=== PATIENT | male | born 1985 | race African-American/Black ===

== ENCOUNTER 2024-04-04 02:15 | Observation (INO) ==
--- NOTE | 2024-04-04 02:50 | EKG ---
Test Reason : CHEST AND BACK PAIN Blood Pressure : */* mmHG Vent. Rate : 82 BPM Atrial Rate : 82 BPM P-R Int : 160 ms QRS Dur : 78 ms QT Int : 354 ms P-R-T Axes : 75 74 51 degrees QTc Int : 413 ms Normal sinus rhythm Minimal voltage criteria for LVH, may be normal variant ( Sokolow-Dimas ) Borderline ECG No previous ECGs available Confirmed by Denny Cunningham ([id number]) on 04/05/2024 12:40:18 PM Referred By: Confirmed By: Denny Cunningham
--- NOTE | 2024-04-04 02:56 | DR.MBACK ---
HPI Time Seen Time Seen by Provider: 04/04/24 02:54 PCP Primary Care Physician: LUZMARIA Complaint Chief Complaint:: PT AMBULATORY IN ED WITH C/O RIGHT CHEST AND RIGHT BACK PAIN. PT STATES IT HURTS MORE ON MOVEMENT. STATES SHE JUST LEFT [facility] LESS THAN 12 HRS AGO. STATES THEY TOLD HIM HE MIGHT HAVE PNEUMONIA AND PUT HIM ON ANTIBIOTICS AND STEROIDS. COVID-19 Coronavirus risk:travel/contact w/high risk person: No Has patient experienced Coronavirus symptoms: No Source History Provided: Patient Mode of Arrival Mode of Arrival: Ambulatory Timing Onset of Chief Complaint: 04/03/24 PMH PMH Past Medical History: Yes Past Medical History: Coronary Artery Disease, Dyslipidemia, Hypertension and [place] Past Surgical History: No Surgical History: No History Family History History of Family Medical Conditions: Yes Family Medical History: [place], Coronary Artery Disease, Heart Failure, Sudden Cardiac and Hypertension Social History Does patient currently use any type of tobacco product: Yes Have you used tobacco products in the last 12 months: Yes Type of Tobacco Use: Vape Does any household member use tobacco: No Alcohol Use: None Do you use any recreational Drugs:: Yes (MARIJUANA) Lives With: Family Lives Where: Home Travel Risk Coronavirus risk:travel/contact w/high risk person: No Has patient experienced Coronavirus symptoms: No Infectious screening In the last 2 months have you had wt loss of >10#?: NO Have you had fever, night sweats or hemotysis?: No Have you traveled outside the country in the last 6 months?: No Isolation: Standard PE Vital Signs Vitals: Vital Signs Temperature 98.0 F Pulse Rate 64 Pulse Rate 67 Pulse Rate 62 Pulse Rate 62 Pulse Rate 70 Pulse Rate 73 Pulse Rate 76 Pulse Rate 64 Pulse Rate 70 Pulse Rate 72 Pulse Rate 72 Pulse Rate 75 Pulse Rate 80 Pulse Rate 79 Pulse Rate 78 Pulse Rate 79 Pulse Rate 80 Pulse Rate 82 Pulse Rate 82 Pulse Rate 84 Pulse Rate 81 Respiratory Rate 25 Respiratory Rate 25 Respiratory Rate 25 Respiratory Rate 24 Respiratory Rate 25 Respiratory Rate 24 Respiratory Rate 24 Respiratory Rate 24 Respiratory Rate 28 Respiratory Rate 29 Respiratory Rate 30 Respiratory Rate 29 Respiratory Rate 41 Respiratory Rate 25 Respiratory Rate 27 Respiratory Rate 25 Respiratory Rate 27 Respiratory Rate 27 Respiratory Rate 28 Respiratory Rate 32 Respiratory Rate 20 Blood Pressure 80/50 Blood Pressure 97/54 Blood Pressure 97/54 Blood Pressure 87/52 Blood Pressure 91/55 Blood Pressure 90/52 Blood Pressure 92/51 Blood Pressure 91/55 Blood Pressure 112/58 Blood Pressure 110/59 Blood Pressure 112/61 Blood Pressure 120/66 Blood Pressure 117/69 O2 Sat by Pulse Oximetry 94 O2 Sat by Pulse Oximetry 95 O2 Sat by Pulse Oximetry 95 O2 Sat by Pulse Oximetry 96 O2 Sat by Pulse Oximetry 94 O2 Sat by Pulse Oximetry 97 O2 Sat by Pulse Oximetry 96 ROR Labs Reviewed 04/04/24 02:55 04/04/24 02:55 Laboratory: WBC 11.1 X10^3/uL (3.6-10.0) H 04/04/24 02:55 RBC 4.38 X10^6/uL (4.7-6.0) L 04/04/24 02:55 Hgb 13.5 g/dL (13.5-18.0) 04/04/24 02:55 Hct 40.2 % (42.0-54.0) L 04/04/24 02:55 MCV 91.6 fL (80.0-100.0) 04/04/24 02:55 MCH 30.7 pg (27.0-34.0) 04/04/24 02:55 MCHC 33.5 g/dL (33.0-35.0) 04/04/24 02:55 RDW 14.3 % (11.6-16.5) 04/04/24 02:55 Plt Count 275 X10^3/uL (150.0-450.0) 04/04/24 02:55 MPV 8.7 fL (7.4-11.0) 04/04/24 02:55 Neut % (Auto) 73.6 % (42.0-75.0) 04/04/24 02:55 Lymph % (Auto) 15.3 % (21.0-51.0) L 04/04/24 02:55 [place] % (Auto) 5.8 % (0.0-13.0) 04/04/24 02:55 Eos % (Auto) 0.8 % (0.9-2.9) L 04/04/24 02:55 Baso % (Auto) 4.5 % (0.2-1.0) H 04/04/24 02:55 Neut # (Auto) 8.2 x10^3/uL (2.2-4.8) H 04/04/24 02:55 Lymph # (Auto) 1.7 X10^3/uL (1.3-2.9) 04/04/24 02:55 [place] # (Auto) 0.6 x10^3/uL (0.3-0.8) 04/04/24 02:55 Eos # (Auto) 0.1 x10^3/uL (0.0-0.2) 04/04/24 02:55 Baso # (Auto) 0.5 X10^3/uL (0.0-0.1) H 04/04/24 02:55 Absolute Nucleated RBC 0.0 /100WBC 04/04/24 02:55 D-Dimer 0.29 ug/ml (0.0-0.57) 04/04/24 02:55 Sodium 138 mmol/L (136-145) 04/04/24 02:55 Corrected Sodium TNP 04/04/24 02:55 Potassium 3.5 mmol/L (3.5-5.1) 04/04/24 02:55 Chloride 104 mmol/L (98-107) 04/04/24 02:55 Carbon Dioxide 31.0 mmol/L (21-32) 04/04/24 02:55 BUN 11 mg/dL (7-18) 04/04/24 02:55 Creatinine 1.16 mg/dL (0.70-1.30) 04/04/24 02:55 Est GFR (MDRD) Af Amer > 60 (>60) 04/04/24 02:55 Est GFR (MDRD) Non-Af > 60 (>60) 04/04/24 02:55 Glucose 106 mg/dL (65-99) H 04/04/24 02:55 Lactic Acid 0.7 mmol/L (0.4-2.0) 04/04/24 07:10 Calcium 8.4 mg/dL (8.5-10.1) L 04/04/24 02:55 Corrected Calcium 9.0 mg/dL (8.5-10.1) 04/04/24 02:55 Total Bilirubin 0.20 mg/dL (0.2-1.0) 04/04/24 02:55 AST 19 Units/L (15-37) 04/04/24 02:55 ALT 28 Units/L (12-78) 04/04/24 02:55 Alkaline Phosphatase 102 Units/L (46-116) 04/04/24 02:55 Creatine Kinase 228 Units/L (39-308) 04/04/24 02:55 Troponin I High Sens 4.3 ng/L (4.0-60.0) 04/04/24 05:05 Total Protein 6.7 g/dL (6.4-8.2) 04/04/24 02:55 Albumin 3.2 g/dL (3.4-5.0) L 04/04/24 02:55 Globulin 3.5 g/dL (2.5-4.5) 04/04/24 02:55 Albumin/Globulin Ratio 0.9 Ratio (1.1-2.1) L 04/04/24 02:55 Opioid Opioid Risk Tool Age (Laci box if 16-45): Yes History of Preadolescent Sexual Abuse: No Total: 1 Total Score Risk Category: Low Risk Copyright: Neymar ANDERSON predicting aberrant behaviors Discharge Plan Diagnosis Discharge Problem: Chest pain, Pneumonia, Hypotension Discharge Plan Patient Disposition: 09 ADMITTED INPATIENT Condition: Stable Orders to Discharge Patient Discharge Orders: Transfer (Routine); Ordered 04/04/24 Ordered By: CAROLYN WHITE
[2024-04-04 03:09] LABS: BASOPHILS # (AUTO) 0.5 X10^3/uL (0.0-0.1); BASOPHILS % (AUTO) 4.5 % (0.2-1.0); EOSINOPHILS # (AUTO) 0.1 x10^3/uL (0.0-0.2); EOSINOPHILS % (AUTO) 0.8 % (0.9-2.9); HEMATOCRIT 40.2 % (42.0-54.0); HEMOGLOBIN 13.5 g/dL (13.5-18.0); LYMPHOCYTES # (AUTO) 1.7 X10^3/uL (1.3-2.9); LYMPHOCYTES % (AUTO) 15.3 % (21.0-51.0); MEAN CORPUSCULAR HEMOGLOBIN 30.7 pg (27.0-34.0); MEAN CORPUSCULAR HGB CONC 33.5 g/dL (33.0-35.0); MEAN CORPUSCULAR VOLUME 91.6 fL (80.0-100.0); MEAN PLATELET VOLUME 8.7 fL (7.4-11.0); MONOCYTES # (AUTO) 0.6 x10^3/uL (0.3-0.8); MONOCYTES % (AUTO) 5.8 % (0.0-13.0); NEUTROPHILS # (AUTO) 8.2 x10^3/uL (2.2-4.8); NEUTROPHILS % (AUTO) 73.6 % (42.0-75.0); PLATELET COUNT 275 X10^3/uL (150.0-450.0); RED BLOOD COUNT 4.38 X10^6/uL (4.7-6.0); RED CELL DISTRIBUTION WIDTH 14.3 % (11.6-16.5); WHITE BLOOD COUNT 11.1 X10^3/uL (3.6-10.0)
[2024-04-04 03:22] LABS: ALANINE AMINOTRANSFERASE 28 Units/L (12-78); ALBUMIN 3.2 g/dL (3.4-5.0); ALKALINE PHOSPHATASE 102 Units/L (46-116); ASPARTATE AMINO TRANSFERASE 19 Units/L (15-37); BLOOD UREA NITROGEN 11 mg/dL (7-18); CALCIUM 8.4 mg/dL (8.5-10.1); CHLORIDE 104 mmol/L (98-107); CREATINE KINASE 228 Units/L (39-308); CREATININE 1.16 mg/dL (0.70-1.30); GLUCOSE 106 mg/dL (65-99); POTASSIUM 3.5 mmol/L (3.5-5.1); SODIUM 138 mmol/L (136-145); TOTAL PROTEIN 6.7 g/dL (6.4-8.2); eGFR NON BLACK RACES > 60 (>60)
--- NOTE | 2024-04-04 04:59 | CT ---
EXAM: CT CHEST WITHOUT CONTRAST HISTORY: PT AMBULATORY IN ED WITH C/O RIGHT CHEST AND RIGHT BACK PAIN. PT STATES IT HURTS MORE ON MOVEMENT. ; CAD, HTN, [place] COMPARISON: None. TECHNIQUE: Axial images were acquired of the chest without IV contrast. Sagittal and coronal reformatted images were provided. All images were reviewed in a variety of windows and levels. 3D MIPS were performed a nd reviewed. RADIATION REDUCTION TECHNIQUE: Automated exposure control, Adjustment of the mA and/or kV according t o patient size, or iterative reconstruction techniques were used. FINDINGS: Please note that lack of IV contrast limits evaluation of soft tissue structures and vascular detail THYROID GLAND: The thyroid gland is grossly unremarkable. HEART AND VESSELS: The heart size is within normal limits. There is no evidence of a pericardial effu pantera. The thoracic aorta is normal is size without evidence of an aneurysm. The main pulmonary artery size is within normal limits. LYMPHNODES: There is no evidence of axillary, mediastinal, or hilar lymphadenopathy. AIRWAY: The trachea and mainstem bronchi are patent. There are no intraluminal lesions seen. LUNGS: Bibasilar subsegmental atelectasis and/or infiltrates. No pleural effusion or pneumothorax. ESOPHAGUS: The esophagus is grossly unremarkable. BONES: The visualized bones are intact. There are no concerning lytic or blastic lesions identified. UPPER ABDOMINAL STRUCTURES: The visualized portions of the upper abdominal structures are unremarkabl e. IMPRESSION: Mild bibasilar subsegmental atelectasis and/or infiltrates. THIS IS AN ELECTRONICALLY VERIFIED FINAL REPORT 04/04/2024 4:48 AM - Electronically signed by Deo Katz MD
--- NOTE | 2024-04-04 05:11 | RAD ---
EXAM: CHEST, 1 VIEW HISTORY: PT AMBULATORY IN ED WITH C/O RIGHT CHEST AND RIGHT BACK PAIN. PT STATES IT HURTS MORE ON MOVEMENT.; C AD, HTN, [place] COMPARISON: None FINDINGS: The cardiomediastinal silhouette is normal in size. No acute airspace disease. No pneumothorax or effusion. No acute osseous abnormality. IMPRESSION: No acute cardiopulmonary disease. THIS IS AN ELECTRONICALLY VERIFIED FINAL REPORT 04/04/2024 5:07 AM - Electronically signed by Royal Mccollum MD
[2024-04-04] MEDS: NS 1,000 ML IV 1,000 ML IV ONE (06:30)
[2024-04-04] MEDS: NS 1/2 1,000 ML IV 1,000 ML IV SCH ×2 (07:20→10:29)
[2024-04-04] MEDS: FORTAZ or TAZICEF VIAL INJ IV SCH (07:21)
[2024-04-04] MEDS: LEVAQUIN PREMIX IV 750 MG 750 MG/150 ML BAG IV SCH (07:21)
[2024-04-04 08:20] VITALS: BMI 25.2
[2024-04-04] MEDS: NS 1,000 ML IV 1,000 ML ONE (08:30)
[2024-04-04] MEDS: NS 1/2 1,000 ML IV 1,000 ML IV ONE (08:30)
[2024-04-04] MEDS ORDERED: PULMICORT NEB TX 0.5 MG NEB SCH (09:00)
[2024-04-04] MEDS: PULMICORT NEB TX 0.5 MG NEB SCH (09:17)
[2024-04-04] MEDS: DUONEB 0.5 MG/3 MG (3 mL) NEB SCH (13:10)
[2024-04-04] MEDS ORDERED: DUONEB 0.5 MG/3 MG (3 mL) NEB SCH (14:00)
[2024-04-04] MEDS ORDERED: NS 100 ML IV 100 ML ONE (16:50)
[2024-04-04] MEDS: FORTAZ or TAZICEF VIAL INJ 1 G in NS 100 ML IV 100 ML IV SCH (16:56)
--- NOTE | 2024-04-04 17:27 | DR.H&P ---
H&P History & Physical for Day of: H&P Date: 04/04/24 Chief Complaint Chief Complaint: Right anterior chest and right posterior back pain. History of Present Illness History of Present Illness: This is a pleasant 39-year-old black male who presented to [facility] emergency department earlier this morning. He states that he had been in [facility] 12 hours earlier. He states that they told him he has pneumonia and put him on oral antibiotics and steroids and discharged him home. A chest x-ray was done here in the emergency department that was clear however, the ER physician also ordered a CT scan w ithout contrast of his lungs because of the anterior and posterior right-sided chest pain he was having. The CT scan does show that he has mild bibasilar subsegmental atelectasis and/or infiltrates. His white blood cell count is also elevated at 11,100. The patient was discharged home on prednisone 20 mg twice daily and doxycycline 100 mg p.o. twice daily. The patient appears very uncomfortable and lethargic at this time. His symptoms have been going on for several days now and have gotten worse and not better over time. He does have a past medical history significant for primary hypertension and myocardial infarction. The patient was also noted to be hypotensive in the emergency depa rtment but his blood pressure did start improving after IV fluid hydration. Past Medical History Past Medical History: Coronary Artery Disease, Dyslipidemia, Hypertension and [place] Past Surgical History Surgical History: No History Family History Family Medical History: [place] and Hypertension Social History Does patient currently use any type of tobacco product: No Have you used tobacco products in the last 12 months: Yes Type of Tobacco Use: Vape Does any household member use tobacco: No Alcohol Use: None Drug Use: Marijuana Medications Home Medications: Home Medications Medication Instructions Recorded Confirmed Type albuterol sulfate 90 mcg/actuation 2 inh inhalation Q4H PRN 04/04/24 04/04/24 History aerosol inhaler amlodipine 5 mg tablet 5 mg PO QDAY 04/04/24 04/04/24 History aspirin 81 mg tablet,delayed 81 mg PO QDAY 04/04/24 04/04/24 History release atorvastatin 40 mg tablet 40 mg PO QDAY 04/04/24 04/04/24 History doxycycline hyclate 100 mg tablet 100 mg PO BID 04/04/24 04/04/24 History prednisone 20 mg tablet 20 mg PO BID 04/04/24 04/04/24 History Allergies Allergies Allergy/AdvReac Type Severity Reaction Status Date / Time No Known Allergies Allergy Verified 04/04/24 02:35 Labs 04/04/24 02:55 04/04/24 02:55 Labs: Laboratory WBC 11.1 X10^3/uL (3.6-10.0) H 04/04/24 02:55 RBC 4.38 X10^6/uL (4.7-6.0) L 04/04/24 02:55 Hgb 13.5 g/dL (13.5-18.0) 04/04/24 02:55 Hct 40.2 % (42.0-54.0) L 04/04/24 02:55 MCV 91.6 fL (80.0-100.0) 04/04/24 02:55 MCH 30.7 pg (27.0-34.0) 04/04/24 02:55 MCHC 33.5 g/dL (33.0-35.0) 04/04/24 02:55 RDW 14.3 % (11.6-16.5) 04/04/24 02:55 Plt Count 275 X10^3/uL (150.0-450.0) 04/04/24 02:55 MPV 8.7 fL (7.4-11.0) 04/04/24 02:55 Neut % (Auto) 73.6 % (42.0-75.0) 04/04/24 02:55 Lymph % (Auto) 15.3 % (21.0-51.0) L 04/04/24 02:55 Reynolds % (Auto) 5.8 % (0.0-13.0) 04/04/24 02:55 Eos % (Auto) 0.8 % (0.9-2.9) L 04/04/24 02:55 Baso % (Auto) 4.5 % (0.2-1.0) H 04/04/24 02:55 Neut # (Auto) 8.2 x10^3/uL (2.2-4.8) H 04/04/24 02:55 Lymph # (Auto) 1.7 X10^3/uL (1.3-2.9) 04/04/24 02:55 Reynolds # (Auto) 0.6 x10^3/uL (0.3-0.8) 04/04/24 02:55 Eos # (Auto) 0.1 x10^3/uL (0.0-0.2) 04/04/24 02:55 Baso # (Auto) 0.5 X10^3/uL (0.0-0.1) H 04/04/24 02:55 Absolute Nucleated RBC 0.0 /100WBC 04/04/24 02:55 D-Dimer 0.29 ug/ml (0.0-0.57) 04/04/24 02:55 Sodium 138 mmol/L (136-145) 04/04/24 02:55 Corrected Sodium TNP 04/04/24 02:55 Potassium 3.5 mmol/L (3.5-5.1) 04/04/24 02:55 Chloride 104 mmol/L (98-107) 04/04/24 02:55 Carbon Dioxide 31.0 mmol/L (21-32) 04/04/24 02:55 BUN 11 mg/dL (7-18) 04/04/24 02:55 Creatinine 1.16 mg/dL (0.70-1.30) 04/04/24 02:55 Est GFR (MDRD) Af Amer > 60 (>60) 04/04/24 02:55 Est GFR (MDRD) Non-Af > 60 (>60) 04/04/24 02:55 Glucose 106 mg/dL (65-99) H 04/04/24 02:55 Lactic Acid 0.7 mmol/L (0.4-2.0) 04/04/24 07:10 Calcium 8.4 mg/dL (8.5-10.1) L 04/04/24 02:55 Corrected Calcium 9.0 mg/dL (8.5-10.1) 04/04/24 02:55 Total Bilirubin 0.20 mg/dL (0.2-1.0) 04/04/24 02:55 AST 19 Units/L (15-37) 04/04/24 02:55 ALT 28 Units/L (12-78) 04/04/24 02:55 Alkaline Phosphatase 102 Units/L (46-116) 04/04/24 02:55 Creatine Kinase 228 Units/L (39-308) 04/04/24 02:55 Troponin I High Sens 4.3 ng/L (4.0-60.0) 04/04/24 05:05 Total Protein 6.7 g/dL (6.4-8.2) 04/04/24 02:55 Albumin 3.2 g/dL (3.4-5.0) L 04/04/24 02:55 Globulin 3.5 g/dL (2.5-4.5) 04/04/24 02:55 Albumin/Globulin Ratio 0.9 Ratio (1.1-2.1) L 04/04/24 02:55 Review of Systems Constitutional: Fever, Chills, Sweats, Weakness and Malaise Eyes: No Symptoms Reported ENT: No Symptoms Reported Respiratory: Cough, Shortness of Breath, Pleuritic Pain and Sputum Cardiovascular: Chest Pain; denies Paroxysmal Noc. Dyspnea Gastrointestinal: denies Nausea, Vomiting, Abdominal Pain, Diarrhea or Constipation Genitourinary: No Symptoms Reported Musculoskeletal: No Symptoms Reported Skin: No Symptoms Reported Neurological: No Symptoms Reported Physical Exam Vital Signs: Vital Signs Pulse Rate 51 Pulse Rate 74 Pulse Rate 57 Pulse Rate 64 Pulse Rate 59 Pulse Rate 58 Pulse Rate 57 Respiratory Rate 22 Respiratory Rate 26 Respiratory Rate 28 Respiratory Rate 23 Respiratory Rate 21 Blood Pressure 95/53 Blood Pressure 113/57 Blood Pressure 122/78 Blood Pressure 102/51 Blood Pressure 103/51 O2 Sat by Pulse Oximetry 96 O2 Sat by Pulse Oximetry 96 O2 Sat by Pulse Oximetry 98 O2 Sat by Pulse Oximetry 98 O2 Sat by Pulse Oximetry 96 O2 Sat by Pulse Oximetry 97 O2 Sat by Pulse Oximetry 99 Oriented: Normal, Time, Person and Place Eyes: Normal Ear: Normal Nose: Normal Throat: Normal Respiratory: Diminished Throughout and Rhonchi Throughout Cardiovascular: Normal; negative Tachycardia, Bradycardia or Irregular : Normal Auscultation: Bowel Sounds: Normal Palpation: Normal Tenderness: Normal Skin: Normal Musculoskeletal: Normal Psychiatric: Normal Mood Description: Apathetic and Withdrawn Affect: Normal Speech Pattern: Clear Assessment/Plan (1) Pneumonia: Qualifiers: Laterality: bilateral Lung location: lower lobe of lung Pneumonia type: due to unspecified organism Qualified Code(s): J18.9 - Pneumonia, unspecified organism Status: Acute Plan: We will initiate pneumonia protocol and make sure that he has sputum cultures, blood cultures x 2, a lactic acid and we will be giving him IV Fortaz and Levaquin for antibiotic coverage. (2) Hypotension: Status: Acute Plan: IV hydration. Hold antihypertensive medication at this time. (3) Chest pain: Qualifiers: Chest pain type: chest pain on breathing Qualified Code(s): R07.1 - Chest pain on breathing Status: Acute Plan: Pain control if needed. I will start him on Tussionex cough me dicine since she states it hurts to have coughing spells and hurts when he takes deep breaths. I told him this is secondary to pleurisy. Review H&P Reviewed: Yes Patient was examined?: Yes
[2024-04-04] MEDS: TUSSIONEX PENNKINETIC SUSP PO PRN (20:39)
[2024-04-04] MEDS: K-DUR TAB 20 MEQ PO ONE (22:03)
[2024-04-05 05:16] LABS: BASOPHILS # (AUTO) 0.1 X10^3/uL (0.0-0.1); BASOPHILS % (AUTO) 0.8 % (0.2-1.0); EOSINOPHILS % (AUTO) 0.5 % (0.9-2.9); HEMATOCRIT 40.6 % (42.0-54.0); HEMOGLOBIN 13.5 g/dL (13.5-18.0); LYMPHOCYTES # (AUTO) 2.9 X10^3/uL (1.3-2.9); LYMPHOCYTES % (AUTO) 30.4 % (21.0-51.0); MEAN CORPUSCULAR HEMOGLOBIN 30.6 pg (27.0-34.0); MEAN CORPUSCULAR HGB CONC 33.3 g/dL (33.0-35.0); MEAN CORPUSCULAR VOLUME 91.7 fL (80.0-100.0); MEAN PLATELET VOLUME 9.1 fL (7.4-11.0); MONOCYTES # (AUTO) 0.9 x10^3/uL (0.3-0.8); MONOCYTES % (AUTO) 8.9 % (0.0-13.0); NEUTROPHILS # (AUTO) 5.7 x10^3/uL (2.2-4.8); NEUTROPHILS % (AUTO) 59.4 % (42.0-75.0); PLATELET COUNT 269 X10^3/uL (150.0-450.0); RED BLOOD COUNT 4.43 X10^6/uL (4.7-6.0); RED CELL DISTRIBUTION WIDTH 14.4 % (11.6-16.5); WHITE BLOOD COUNT 9.6 X10^3/uL (3.6-10.0)
[2024-04-05] MEDS: NS 1/2 1,000 ML IV 1,000 ML IV ONE (05:25)
[2024-04-05 05:35] LABS: ALANINE AMINOTRANSFERASE 26 Units/L (12-78); ALBUMIN 2.9 g/dL (3.4-5.0); ALKALINE PHOSPHATASE 84 Units/L (46-116); ASPARTATE AMINO TRANSFERASE 16 Units/L (15-37); BLOOD UREA NITROGEN 7 mg/dL (7-18); CALCIUM 8.5 mg/dL (8.5-10.1); CARBON DIOXIDE 29.6 mmol/L (21-32); CHLORIDE 105 mmol/L (98-107); COR CA(FOR HYPOALB) 9.4 mg/dL (8.5-10.1); CREATININE 0.96 mg/dL (0.70-1.30); GLUCOSE 93 mg/dL (65-99); MAGNESIUM 1.6 mg/dL (2.0-2.9); POTASSIUM 3.9 mmol/L (3.5-5.1); SODIUM 139 mmol/L (136-145); TOTAL PROTEIN 6.3 g/dL (6.4-8.2); eGFR NON BLACK RACES > 60 (>60)
[2024-04-05] MEDS: MAG-OX TAB PO SCH (09:27)
--- NOTE | 2024-04-05 11:44 | RAD ---
EXAM:CHEST x-ray, 1 VIEWHISTORY:PNA; CAD, HTN, [place] -COMPARISON:X-ray 04/04/2024FINDINGS:The trachea is midline. The cardiac silhouette is unremarkable .Lungs appear clear. No pneumothorax or pleural effusion is seen.No acute bony abnormality is seen.IMPRESSION:No acute cardiopulmonary abnormality is seen.THIS IS AN ELECTRONICALLY VERIFIED FINAL REPORT04/05/2024 11:41 AM - Electronically signed by Robe Nesbitt MD
[2024-04-05] MEDS ORDERED: NS 1/2 1,000 ML IV 1,000 ML IV ONE (12:22)
[2024-04-05] MEDS: CONSULT PHARMACY - POTASSIUM & MAGNESIUM XX SCH ×2 (16:54)
--- NOTE | 2024-04-05 21:31 | PCM.PROG ---
Progress Note Progress Note for Day of Date of Exam: 04/05/24 Subjective Subjective: The patient is alert and awake this morning. There was no acute events since I saw him yesterday morning. He did well overnight and is doing well this morning. He states that he feels better his appetite is good and he appears to responding well to treatment. We will continue what we are doing at this time and recheck him in the morning. I told him he should expect discharge from the hospital over the next day or 2. Past Medical Family Social History Allergies: Allergies No Known Allergies Allergy (Verified 04/04/24 02:35) Review of Systems ROS: No change since H&P Vital Signs and I&O's Vital Signs: Vital Signs Temperature 97.9 F Pulse Rate 65 Pulse Rate 72 Pulse Rate 60 Pulse Rate 66 Pulse Rate 61 Pulse Rate 75 Pulse Rate 59 Respiratory Rate 28 Respiratory Rate 35 Respiratory Rate 28 Respiratory Rate 25 Respiratory Rate 22 Respiratory Rate 25 Respiratory Rate 24 Blood Pressure 114/69 Blood Pressure 114/73 Blood Pressure 123/82 Blood Pressure 120/68 Blood Pressure 111/70 Blood Pressure 123/71 Blood Pressure 104/54 O2 Sat by Pulse Oximetry 99 O2 Sat by Pulse Oximetry 94 O2 Sat by Pulse Oximetry 96 O2 Sat by Pulse Oximetry 97 O2 Sat by Pulse Oximetry 93 O2 Sat by Pulse Oximetry 94 O2 Sat by Pulse Oximetry 97 Intake and Output: Intake & Output 04/03/24 04/04/24 04/05/24 04/06/24 11:59 11:59 11:59 11:59 Intake Total 2401 / 2401 1671 / 1671 Output Total 1900 / 1900 2200 / 2200 Balance 501 / 501 -529 / -529 Physical Exam Oriented: Normal, Time, Person and Place Eyes: Normal Ear: Normal Nose: Normal Throat: Normal Respiratory: Generalized, Diminished and Rhonchi Cardiovascular: Normal; negative Tachycardia, Bradycardia or Irregular : Normal Auscultation: Bowel Sounds: Normal Tenderness: Normal Skin: Normal Musculoskeletal: Normal Psychiatric: Normal Mood Description: Apathetic and Withdrawn Affect: Normal Speech Pattern: Clear and Appropriate Laboratory and Diagnostics 04/05/24 04:15 04/05/24 04:15 Labs: Laboratory WBC 9.6 X10^3/uL (3.6-10.0) 04/05/24 04:15 RBC 4.43 X10^6/uL (4.7-6.0) L 04/05/24 04:15 Hgb 13.5 g/dL (13.5-18.0) 04/05/24 04:15 Hct 40.6 % (42.0-54.0) L 04/05/24 04:15 MCV 91.7 fL (80.0-100.0) 04/05/24 04:15 MCH 30.6 pg (27.0-34.0) 04/05/24 04:15 MCHC 33.3 g/dL (33.0-35.0) 04/05/24 04:15 RDW 14.4 % (11.6-16.5) 04/05/24 04:15 Plt Count 269 X10^3/uL (150.0-450.0) 04/05/24 04:15 MPV 9.1 fL (7.4-11.0) 04/05/24 04:15 Neut % (Auto) 59.4 % (42.0-75.0) 04/05/24 04:15 Lymph % (Auto) 30.4 % (21.0-51.0) 04/05/24 04:15 [place]offey % (Auto) 8.9 % (0.0-13.0) 04/05/24 04:15 Eos % (Auto) 0.5 % (0.9-2.9) L 04/05/24 04:15 Baso % (Auto) 0.8 % (0.2-1.0) 04/05/24 04:15 Neut # (Auto) 5.7 x10^3/uL (2.2-4.8) H 04/05/24 04:15 Lymph # (Auto) 2.9 X10^3/uL (1.3-2.9) 04/05/24 04:15 [place]offey # (Auto) 0.9 x10^3/uL (0.3-0.8) H 04/05/24 04:15 Eos # (Auto) 0.0 x10^3/uL (0.0-0.2) 04/05/24 04:15 Baso # (Auto) 0.1 X10^3/uL (0.0-0.1) 04/05/24 04:15 Absolute Nucleated RBC 0.0 /100WBC 04/05/24 04:15 D-Dimer 0.29 ug/ml (0.0-0.57) 04/04/24 02:55 Sodium 139 mmol/L (136-145) 04/05/24 04:15 Corrected Sodium TNP 04/05/24 04:15 Potassium 3.9 mmol/L (3.5-5.1) 04/05/24 04:15 Chloride 105 mmol/L (98-107) 04/05/24 04:15 Carbon Dioxide 29.6 mmol/L (21-32) 04/05/24 04:15 BUN 7 mg/dL (7-18) 04/05/24 04:15 Creatinine 0.96 mg/dL (0.70-1.30) 04/05/24 04:15 Est GFR (MDRD) Af Amer > 60 (>60) 04/05/24 04:15 Est GFR (MDRD) Non-Af > 60 (>60) 04/05/24 04:15 Glucose 93 mg/dL (65-99) 04/05/24 04:15 Lactic Acid 0.7 mmol/L (0.4-2.0) 04/04/24 07:10 Calcium 8.5 mg/dL (8.5-10.1) 04/05/24 04:15 Corrected Calcium 9.4 mg/dL (8.5-10.1) 04/05/24 04:15 Magnesium 1.6 mg/dL (2.0-2.9) L 04/05/24 04:15 Total Bilirubin 0.30 mg/dL (0.2-1.0) 04/05/24 04:15 AST 16 Units/L (15-37) 04/05/24 04:15 ALT 26 Units/L (12-78) 04/05/24 04:15 Alkaline Phosphatase 84 Units/L (46-116) 04/05/24 04:15 Creatine Kinase 228 Units/L (39-308) 04/04/24 02:55 Troponin I High Sens 4.3 ng/L (4.0-60.0) 04/04/24 05:05 Total Protein 6.3 g/dL (6.4-8.2) L 04/05/24 04:15 Albumin 2.9 g/dL (3.4-5.0) L 04/05/24 04:15 Globulin 3.4 g/dL (2.5-4.5) 04/05/24 04:15 Albumin/Globulin Ratio 0.9 Ratio (1.1-2.1) L 04/05/24 04:15 Radiology Reviewed: Yes Plan (1) Pneumonia: Status: Acute Qualifiers: Laterality: bilateral Lung location: lower lobe of lung Pneumonia type: due to unspecified organism Qualified Code(s): J18.9 - Pneumonia, unspe cified organism Narrative Support Text: The patient's chest x-ray this morning shows that it has cleared. Plan: We will initiate pneumonia protocol and make sure that he has sputum cultures, blood cultures x 2, a lactic acid and we will be giving him IV Fortaz and Levaquin for antibiotic coverage. (2) Hypotension: Status: Resolved Plan: IV hydration. Hold antihypertensive medication at this time. (3) Chest pain: Status: Resolved Qualifiers: Chest pain type: chest pain on breathing Qualified Code(s): R07.1 - Chest pain on breathing Plan: Pain control if needed. I will start him on Tussionex cough med icine since she states it hurts to have coughing spells and hurts when he takes deep breaths. I told him this is secondary to pleurisy. (4) Hypomagnesemia: Status: Acute Plan: We will start magnesium replacement for the patient. We will recheck magnesium level tomorrow morning to make sure it is improving or pos sibly normalize.
[2024-04-06 05:15] LABS: BASOPHILS % (AUTO) 0.3 % (0.2-1.0); EOSINOPHILS # (AUTO) 0.1 x10^3/uL (0.0-0.2); EOSINOPHILS % (AUTO) 0.8 % (0.9-2.9); HEMATOCRIT 41.3 % (42.0-54.0); HEMOGLOBIN 13.7 g/dL (13.5-18.0); LYMPHOCYTES # (AUTO) 2.8 X10^3/uL (1.3-2.9); LYMPHOCYTES % (AUTO) 28.6 % (21.0-51.0); MEAN CORPUSCULAR HEMOGLOBIN 30.6 pg (27.0-34.0); MEAN CORPUSCULAR HGB CONC 33.3 g/dL (33.0-35.0); MEAN CORPUSCULAR VOLUME 91.9 fL (80.0-100.0); MEAN PLATELET VOLUME 9.6 fL (7.4-11.0); MONOCYTES # (AUTO) 0.9 x10^3/uL (0.3-0.8); MONOCYTES % (AUTO) 9.2 % (0.0-13.0); NEUTROPHILS # (AUTO) 5.9 x10^3/uL (2.2-4.8); NEUTROPHILS % (AUTO) 61.1 % (42.0-75.0); PLATELET COUNT 282 X10^3/uL (150.0-450.0); RED CELL DISTRIBUTION WIDTH 14.2 % (11.6-16.5); WHITE BLOOD COUNT 9.7 X10^3/uL (3.6-10.0)
[2024-04-06 05:33] LABS: ALANINE AMINOTRANSFERASE 25 Units/L (12-78); ALBUMIN 2.9 g/dL (3.4-5.0); ALKALINE PHOSPHATASE 85 Units/L (46-116); ASPARTATE AMINO TRANSFERASE 16 Units/L (15-37); BLOOD UREA NITROGEN 10 mg/dL (7-18); CALCIUM 8.4 mg/dL (8.5-10.1); CARBON DIOXIDE 28.2 mmol/L (21-32); CHLORIDE 105 mmol/L (98-107); COR CA(FOR HYPOALB) 9.3 mg/dL (8.5-10.1); CREATININE 0.93 mg/dL (0.70-1.30); GLUCOSE 89 mg/dL (65-99); MAGNESIUM 1.9 mg/dL (2.0-2.9); POTASSIUM 3.9 mmol/L (3.5-5.1); SODIUM 137 mmol/L (136-145); TOTAL PROTEIN 6.4 g/dL (6.4-8.2); eGFR NON BLACK RACES > 60 (>60)
[2024-04-06] MEDS: NS 1/2 1,000 ML IV 1,000 ML IV ONE (06:55)
[2024-04-06] MEDS ORDERED: CONSULT PHARMACY - POTASSIUM & MAGNESIUM XX SCH (07:00)
[2024-04-06] MEDS: MAG-OX TAB PO SCH (08:30)
[2024-04-06 08:46] VITALS: TEMP 98.2
[2024-04-06 09:02] VITALS: PULSE 65
--- NOTE | 2024-04-06 09:39 | PCM.DCPLAN ---
DISCHARGE SUMMARY Admission Date Date of Admission: 04/04/24 Discharge Date Discharge Date: 04/06/24 Admission Diagnoses (1) Pneumonia: Status: Acute (2) Hypotension: Status: Resolved (3) Chest pain: Status: Resolved (4) Hypomagnesemia: Status: Acute Discharge Diagnoses Discharge Diagnosis: 1. Pneumoniaresolved 2. Hypotensionresolved 3. Chest painresolved 4. Hypomagnesemiamuch improved Discharge Medications Discharge Medications: Home Medication List albuterol sulfate 90 mcg/actuation aerosol inhaler 2 inh inhalation Q4H PRN 04/04/24 [History] amlodipine 5 mg tablet 5 mg PO QDAY 04/04/24 [History] aspirin 81 mg tablet,delayed release 81 mg PO QDAY 04/04/24 [History] atorvastatin 40 mg tablet 40 mg PO QDAY 04/04/24 [History] cefpodoxime 200 mg tablet 200 mg PO BID 7 days #14 tabs 04/06/24 [Rx] levofloxacin 750 mg tablet 750 mg PO QDAY 7 days #7 tabs 04/06/24 [Rx] methylprednisolone 4 mg tablets in a dose pack (Medrol (Brent)) See Rx Instructions .Route .COMPLEX #1 ea 04/06/24 [Rx] Prescriptions: cefpodoxime Gibran Triana levofloxacin Gibran Triana methylprednisolone [Medrol ([facility])] [facility] Vital Signs: Vital Signs Temperature 98.2 F Temperature 98.7 F Pulse Rate 65 Pulse Rate 65 Pulse Rate 75 Pulse Rate 61 Pulse Rate 60 Pulse Rate 51 Pulse Rate 54 Pulse Rate 54 Pulse Rate 89 Pulse Rate 54 Pulse Rate 47 Pulse Rate 51 Pulse Rate 50 Pulse Rate 53 Pulse Rate 53 Respiratory Rate 23 Respiratory Rate 26 Respiratory Rate 36 Respiratory Rate 24 Respiratory Rate 17 Respiratory Rate 18 Respiratory Rate 19 Respiratory Rate 20 Respiratory Rate 33 Respiratory Rate 20 Respiratory Rate 20 Respiratory Rate 20 Respiratory Rate 21 Respiratory Rate 21 Blood Pressure 118/62 Blood Pressure 132/78 Blood Pressure 118/67 Blood Pressure 115/73 Blood Pressure 104/61 Blood Pressure 108/70 Blood Pressure 114/68 Blood Pressure 114/68 O2 Sat by Pulse Oximetry 100 O2 Sat by Pulse Oximetry 99 O2 Sat by Pulse Oximetry 100 O2 Sat by Pulse Oximetry 99 O2 Sat by Pulse Oximetry 98 O2 Sat by Pulse Oximetry 97 O2 Sat by Pulse Oximetry 98 O2 Sat by Pulse Oximetry 98 O2 Sat by Pulse Oximetry 98 O2 Sat by Pulse Oximetry 98 O2 Sat by Pulse Oximetry 98 O2 Sat by Pulse Oximetry 97 O2 Sat by Pulse Oximetry 97 O2 Sat by Pulse Oximetry 100 O2 Sat by Pulse Oximetry 100 Latest Lab Results: Laboratory Last Values WBC 9.7 X10^3/uL (3.6-10.0) 04/06/24 04:17 RBC 4.50 X10^6/uL (4.7-6.0) L 04/06/24 04:17 Hgb 13.7 g/dL (13.5-18.0) 04/06/24 04:17 Hct 41.3 % (42.0-54.0) L 04/06/24 04:17 MCV 91.9 fL (80.0-100.0) 04/06/24 04:17 MCH 30.6 pg (27.0-34.0) 04/06/24 04:17 MCHC 33.3 g/dL (33.0-35.0) 04/06/24 04:17 RDW 14.2 % (11.6-16.5) 04/06/24 04:17 Plt Count 282 X10^3/uL (150.0-450.0) 04/06/24 04:17 MPV 9.6 fL (7.4-11.0) 04/06/24 04:17 Neut % (Auto) 61.1 % (42.0-75.0) 04/06/24 04:17 Lymph % (Auto) 28.6 % (21.0-51.0) 04/06/24 04:17 [place] % (Auto) 9.2 % (0.0-13.0) 04/06/24 04:17 Eos % (Auto) 0.8 % (0.9-2.9) L 04/06/24 04:17 Baso % (Auto) 0.3 % (0.2-1.0) 04/06/24 04:17 Neut # (Auto) 5.9 x10^3/uL (2.2-4.8) H 04/06/24 04:17 Lymph # (Auto) 2.8 X10^3/uL (1.3-2.9) 04/06/24 04:17 [place] # (Auto) 0.9 x10^3/uL (0.3-0.8) H 04/06/24 04:17 Eos # (Auto) 0.1 x10^3/uL (0.0-0.2) 04/06/24 04:17 Baso # (Auto) 0.0 X10^3/uL (0.0-0.1) 04/06/24 04:17 Absolute Nucleated RBC 0.1 /100WBC 04/06/24 04:17 D-Dimer 0.29 ug/ml (0.0-0.57) 04/04/24 02:55 Sodium 137 mmol/L (136-145) 04/06/24 04:17 Corrected Sodium TNP 04/06/24 04:17 Potassium 3.9 mmol/L (3.5-5.1) 04/06/24 04:17 Chloride 105 mmol/L (98-107) 04/06/24 04:17 Carbon Dioxide 28.2 mmol/L (21-32) 04/06/24 04:17 BUN 10 mg/dL (7-18) 04/06/24 04:17 Creatinine 0.93 mg/dL (0.70-1.30) 04/06/24 04:17 Est GFR (MDRD) Af Amer > 60 (>60) 04/06/24 04:17 Est GFR (MDRD) Non-Af > 60 (>60) 04/06/24 04:17 Glucose 89 mg/dL (65-99) 04/06/24 04:17 Lactic Acid 0.7 mmol/L (0.4-2.0) 04/04/24 07:10 Calcium 8.4 mg/dL (8.5-10.1) L 04/06/24 04:17 Corrected Calcium 9.3 mg/dL (8.5-10.1) 04/06/24 04:17 Magnesium 1.9 mg/dL (2.0-2.9) L 04/06/24 04:17 Total Bilirubin 0.20 mg/dL (0.2-1.0) 04/06/24 04:17 AST 16 Units/L (15-37) 04/06/24 04:17 ALT 25 Units/L (12-78) 04/06/24 04:17 Alkaline Phosphatase 85 Units/L (46-116) 04/06/24 04:17 Creatine Kinase 228 Units/L (39-308) 04/04/24 02:55 Troponin I High Sens 4.3 ng/L (4.0-60.0) 04/04/24 05:05 Total Protein 6.4 g/dL (6.4-8.2) 04/06/24 04:17 Albumin 2.9 g/dL (3.4-5.0) L 04/06/24 04:17 Globulin 3.5 g/dL (2.5-4.5) 04/06/24 04:17 Albumin/Globulin Ratio 0.8 Ratio (1.1-2.1) L 04/06/24 04:17 Hospital Course: This is a pleasant 39-year-old black male who presented to [facility] emergency department earlier this morning. He states that he had been in [facility] 12 hours earlier. He states that they told him he has pneumonia and put him on oral antibiotics and steroids and discharged him home. A chest x-ray was done here in the emergency department that was clear however, the ER physician also ordered a CT scan without contrast of his lungs because of the anterior and posterior right-sided chest pain he was having. The CT scan does show that he has mild bibasilar subsegmental atelectasis and/or infiltrates. His white blood cell count is also elevated at 11,100. The patient was discharged home on prednisone 20 mg twice daily and doxycycline 100 mg p.o. twice daily. The patient appears very uncomfortable and lethargic at this time. His symptoms have been going on for several days now and have gotten worse and not better over time. He does have a past medical history significant for primary hypertension and myocardial infarction. The patient was also noted to be hypotensive in the emergency department but his blood pressure did start improving after IV fluid hydration. Following day after admission the patient was feeling much better and his labs were improving. His chest x-ray that day showed that his pneumonia cleared but we want to make sure we treated him completely and kept him an additional 24 hours for IV Fortaz and Levaquin administration. On the morning of discharge today he is feeling much better and his breathing clear and has no pleurisy. His labs look good overall his magnesium is much improved at 1.9 and patient is feeling good enough to go home. We will discharge him home in stable condition this morning and his discharge disposition and discharge medications are listed below. I will have him follow-up with me in about a week to make sure that he has pneumonia has not returned and he is still getting better and not having any further problems.
[2024-04-06 10:20] VITALS: BP 121/79; RESP 22; O2SAT 99
== END 2024-04-06 10:35 | disposition home or self-care (01) ==
LOC: ER 02:20 → ICU 07:16 → INTOOBSV 07:16 → OBSVTOIN 07:16 → ICU 07:46
PROVIDERS: ADMIT Family Medicine; ATTEND Family Medicine
DX: E78.5 Hyperlipidemia, unspecified; R06.02 Shortness of breath; R53.1 Weakness; I95.89 Other hypotension; R07.89 Other chest pain; J18.8 Other pneumonia, unspecified organism; I10 Essential (primary) hypertension; I25.10 Atherosclerotic heart disease of native coronary artery without angina pectoris; E83.42 Hypomagnesemia; I25.2 Old myocardial infarction